=== PATIENT | female | born 2000 | race Caucasian/White ===

== ENCOUNTER → 2020-01-09 | Outpatient (CLI) | payer SELFPAY ==
--- NOTE | 2020-01-09 12:20 | RADIOLOGY REPORT (SQ) ---
EXAM DESCRIPTION: U/S [id number] TRNABD 1GES W/ODOP IMAGES COMPLETED DATE/TIME: 01/09/2020 10:28 am REASON FOR STUDY: Z34.01 ENCNTR FOR SUPRVSN OF NORMAL FIRST PREG, FIRST TRIMESTER Z34.01 ENCNTR FOR SUPRVSN OF NORMAL FIRST PREG, FIRST TRIMES COMPARISON: None. TECHNIQUE: Transabdominal static and realtime grayscale images acquired of the pelvis. Additional se lected spectral and color Doppler images recorded. All images stored on PACs. bHCG: Not available. CLINICAL DATES: LMP 11/05/2019 9 weeks 2 days LIMITATIONS: None. FINDINGS: FETUS: Single Living intrauterine . ULTRASOUND EGA: 9 weeks 6 days ULTRASOUND CORAL: 08/07/2020 EFW: Not applicable less than 20 weeks. CRL: 3 cm FHR: 168 beats per minute. SURVEY: No visualized anomalies. AMNIOTIC FLUID: Adequate amount. PLACENTA: Not yet developed due to early gestation. SUBCHORIONIC BLEED: No SIZE OF BLEED: Not applicable. UTERUS: No masses. No anomalies. CERVICAL LENGTH: 2.5 cm. Closed. RIGHT ADNEXA: Normal ovary with normal vascular flow. 2.9 x 2.3 x 2.5 cm. No adnexal free fluid. No adnexal masses. LEFT ADNEXA: Left ovary is not seen. No adnexal free fluid. No adnexal masses. FREE FLUID: None. OTHER: No other significant finding. IMPRESSION: LIVING INTRAUTERINE . EGA 9 weeks 6 days. Trimester of : First trimester - 0 to 13 weeks. TECHNICAL DOCUMENTATION: JOB ID: [id number] All Rights Reserved rev Reading location - IP/workstation name: [email or web address]
== END ==
LOC: RAD 09:58
PROVIDERS: ATTEND Nurse Practitioner Family
DX: Z34.01 Encounter for supervision of normal first pregnancy, first trimester (principal)
CPT/HCPCS: 76801

== ENCOUNTER 2020-07-23 11:38 | Outpatient (CLI) | payer MEDICAID ==
[2020-07-23 12:28] LABS: ABSOLUTE MONOCYTES (AUTO) 0.9 10^3/uL (0.1-1.4); ABSOLUTE NEUT (AUTO) 9.2 10^3/uL (1.7-8.2); BASOPHILS % (AUTO) 0.3 % (0-2); EOSINOPHILS % (AUTO) 0.1 % (0-6); HEMATOCRIT 32.5 % (36.0-47.0); HEMOGLOBIN 10.8 g/dL (12.0-15.5); LYMPHOCYTES % (AUTO) 16.6 % (13-45); MEAN CORPUSCULAR HEMOGLOBIN 25.6 pg (27.0-33.4); MEAN CORPUSCULAR HGB CONC 33.4 g/dL (32.0-36.0); MEAN CORPUSCULAR VOLUME 77 fl (80-97); MONOCYTES % (AUTO) 7.6 % (3-13); PLATELET COUNT 201 10^3/uL (150-450); RED BLOOD COUNT 4.24 10^6/uL (3.72-5.28); RED CELL DISTRIBUTION WIDTH 14.3 % (11.5-14.0); SEGMENTED NEUTROPHILS % (AUTO) 75.4 % (42-78); TOTAL CELLS COUNTED % (AUTO) 100 %; WHITE BLOOD COUNT 12.2 10^3/uL (4.0-10.5)
[2020-07-23 12:28] LABS: APPEARANCE,URINE SLIGHTLY-CLOUDY; BILIRUBIN,URINE NEGATIVE (NEGATIVE); COLOR,URINE YELLOW; GLUCOSE, URINE NEGATIVE (NEGATIVE); KETONES,URINE NEGATIVE (NEGATIVE); LEUKOCYTE ESTERASE,URINE TRACE (NEGATIVE); NITRITE,URINE NEGATIVE (NEGATIVE); PROTEIN,URINE 30 mg/dL (NEGATIVE); URINE SPECIFIC GRAVITY 1.023; UROBILINOGEN,URINE NEGATIVE mg/dL (<2.0)
[2020-07-23] MEDS ORDERED: ACETAMINOPHEN 325 MG TABLET PO ONE (12:40)
[2020-07-23] MEDS ORDERED: ACETAMINOPHEN 325 MG TABLET ONE (12:41)
[2020-07-23 12:47] LABS: ALBUMIN 3.4 g/dL (3.5-5.0); ALKALINE PHOSPHATASE 175 U/L (38-126); ANION GAP 8 (5-19); ASPARTATE AMINO TRANSFERASE 32 U/L (14-36); BILIRUBIN,DIRECT 0.1 mg/dL (0.0-0.4); BILIRUBIN,TOTAL 0.3 mg/dL (0.2-1.3); BLOOD UREA NITROGEN 11 mg/dL (7-20); CALCIUM 9.3 mg/dL (8.4-10.2); CARBON DIOXIDE 21 mmol/L (22-30); CHLORIDE 106 mmol/L (98-107); GLUCOSE 80 mg/dL (75-110); TOTAL PROTEIN 6.5 g/dL (6.3-8.2); URIC ACID 5.2 mg/dL (2.5-6.2)
[2020-07-23 12:49] LABS: UR PRO/CREAT RATIO RESULT 0.1 mg/mg (0.0-0.2); URINE CREATININE 197.9 mg/dL (16-327); URINE PROTEIN 23.5 mg/dL (<12)
[2020-07-23 13:01] LABS: URINE AMPHETAMINES SCREEN NEGATIVE; URINE BARBITURATES SCREEN NEGATIVE; URINE BENZODIAZEPINES SCREEN NEGATIVE; URINE COCAINE SCREEN NEGATIVE; URINE MARIJUANA (THC) SCREEN NEGATIVE; URINE METHADONE SCREEN NEGATIVE; URINE PHENCYCLIDINE SCREEN NEGATIVE
--- NOTE | 2020-07-23 13:23 | Non Stress Test Report ---
Non Stress Test Datetime Report Generated by CPN: 07/23/2020 13:23 DEMOGRAPHIC EGA NST: 37.2 INDICATION Indication for Study (NST) Other: IUP at 37.2 VITAL SIGNS Temperature - NST: 97.3 Pulse - NST: 79 RESP - NST: 18 NBPSYS NST: 143 NBPDIA NST: 96 MONITORING Monitor Explained: Monitor Explained; Test Explained; Patient Verbalized Understanding Time on Monitor: 07/23/2020 11:51 Time off Monitor: 07/23/2020 12:40 NST Duration: 49 NST INTERVENTIONS NST Interventions: PO Hydration Physician Notified NST: A. Rouse, CNM BABY A: [id number] BABY A Movement : Present Contraction Frequency : x1 FHR Baseline : 140 Accelerations : 15X15 Decelerations : None Variability : Moderate 6-25bpm NST Review: Meets Criteria for Reactive NST NST Review and Verified By : Nathaniel Rivera RN NST Results: Reactive NST REPORT Report Trigger: Send Report
== END 2020-07-23 13:24 | disposition home or self-care (01) ==
LOC: LC 11:38
PROVIDERS: ATTEND Obstetrics & Gynecology
DX: O16.3 Unspecified maternal hypertension, third trimester (principal); Z3A.37 37 weeks gestation of pregnancy
CPT/HCPCS: 59025; 36415; 83615; 84156; 84550; 82570; 85025; 81005; 80053; 80307; J3490; 87086

== ENCOUNTER 2020-08-09 10:44 | Inpatient (IN) | payer MEDICAID ==
[2020-08-09 11:27] LABS: ABSOLUTE LYMPHOCYTES (AUTO) 1.9 10^3/uL (0.5-4.7); ABSOLUTE MONOCYTES (AUTO) 0.7 10^3/uL (0.1-1.4); ABSOLUTE NEUT (AUTO) 9.8 10^3/uL (1.7-8.2); BASOPHILS % (AUTO) 0.3 % (0-2); EOSINOPHILS % (AUTO) 0.2 % (0-6); HEMATOCRIT 34.8 % (36.0-47.0); HEMOGLOBIN 11.1 g/dL (12.0-15.5); LYMPHOCYTES % (AUTO) 15.2 % (13-45); MEAN CORPUSCULAR HEMOGLOBIN 23.6 pg (27.0-33.4); MEAN CORPUSCULAR HGB CONC 31.9 g/dL (32.0-36.0); MEAN CORPUSCULAR VOLUME 74 fl (80-97); PLATELET COUNT 221 10^3/uL (150-450); RED CELL DISTRIBUTION WIDTH 14.9 % (11.5-14.0); SEGMENTED NEUTROPHILS % (AUTO) 78.3 % (42-78); TOTAL CELLS COUNTED % (AUTO) 100 %; WHITE BLOOD COUNT 12.5 10^3/uL (4.0-10.5)
[2020-08-09 11:30] LABS: APPEARANCE,URINE CLOUDY; BILIRUBIN,URINE NEGATIVE (NEGATIVE); COLOR,URINE YELLOW; GLUCOSE, URINE NEGATIVE (NEGATIVE); KETONES,URINE NEGATIVE (NEGATIVE); LEUKOCYTE ESTERASE,URINE SMALL (NEGATIVE); NITRITE,URINE NEGATIVE (NEGATIVE); PROTEIN,URINE 100 mg/dL (NEGATIVE); URINE SPECIFIC GRAVITY 1.023; UROBILINOGEN,URINE NEGATIVE mg/dL (<2.0)
[2020-08-09 11:49] LABS: ALBUMIN 3.4 g/dL (3.5-5.0); ALKALINE PHOSPHATASE 195 U/L (38-126); ANION GAP 8 (5-19); ASPARTATE AMINO TRANSFERASE 25 U/L (14-36); BILIRUBIN,DIRECT 0.2 mg/dL (0.0-0.4); BILIRUBIN,TOTAL 0.4 mg/dL (0.2-1.3); BLOOD UREA NITROGEN 9 mg/dL (7-20); CALCIUM 8.8 mg/dL (8.4-10.2); CARBON DIOXIDE 20 mmol/L (22-30); CHLORIDE 105 mmol/L (98-107); GLUCOSE 82 mg/dL (75-110); POTASSIUM 4.1 mmol/L (3.6-5.0); TOTAL PROTEIN 6.4 g/dL (6.3-8.2); URIC ACID 4.7 mg/dL (2.5-6.2)
[2020-08-09 11:55] LABS: UR PRO/CREAT RATIO RESULT 0.1 mg/mg (0.0-0.2); URINE CREATININE 260.3 mg/dL (16-327); URINE PROTEIN 34.3 mg/dL (<12)
[2020-08-09 12:02] LABS: URINE AMPHETAMINES SCREEN NEGATIVE; URINE BARBITURATES SCREEN NEGATIVE; URINE BENZODIAZEPINES SCREEN NEGATIVE; URINE COCAINE SCREEN NEGATIVE; URINE MARIJUANA (THC) SCREEN NEGATIVE; URINE METHADONE SCREEN NEGATIVE; URINE PHENCYCLIDINE SCREEN NEGATIVE
[2020-08-09] MEDS ORDERED: RINGERS SOLUTION,LACTATED 1,000 ML IV PRN (12:21)
[2020-08-09] MEDS ORDERED: RINGERS SOLUTION,LACTATED 1,000 ML IV ONE (12:21)
[2020-08-09] MEDS ORDERED: PENICILLIN G POTASSIUM 5,000,000 UNIT in DEXTROSE 5%-WATER 100 ML IV ONE (12:21)
[2020-08-09] MEDS ORDERED: DINOPROSTONE 10 MG VAGINAL INSERT.SR PV PRN (14:36)
[2020-08-09] MEDS ORDERED: DINOPROSTONE 10 MG VAGINAL INSERT.SR ONE (14:40)
--- NOTE | 2020-08-09 15:31 | Admission Physical ---
Datetime Report Generated by CPN: 08/09/2020 15:31 CURRENT ADMISSION Chief Complaint: Sent from OB Office for Evaluation and Treatment - Please Specify Indication for Induction: Gestational HTN Admit Impression : Term, Intrauterine Admit Plan: Admit to Unit; Initiate Labor Induction Protocol ALLERGIES Medication Allergies: No Medication Allergies: pesticide (08/09/2020) Latex: No Latex Allergies Food Allergies: raw apples Environmental Allergies: pesticides OBSTETRICAL HISTORY EDC: 08/11/2020 00:00 : 1 Para: 0 Term: 0 : 0 SAB: 0 IAB: 0 Ectopic: 0 Livin Cesareans: 0 VBACs: 0 Multiple Births: 0 Gestational Diabetes: No Rh Sensitization: No Incompetent Cervix: No CELINA: No Infertility: No ART Treatment: No Uterine Anomaly: No IUGR: No Hx Previous C/S: No Macrosomia: No Hx Loss/Stillborn: No PIH: No Hx : No Placenta Previa/Abruption: No Depression/PP Depression: No PTL/PROM: No Post Hemorrhage: No Obstetrical History Comments: G1-Current SEE RECORDS Alcohol: No Marijuana : No Cocaine: No Other Illicit Drugs: No Cigarettes: Never Smoker. [id number] MEDICAL HISTORY Diabetes: No Blood Transfusion: No Pulmonary Disease (Asthma, TB): No Breast Disease: No Hypertension: No Export Specialist Surgery: No Heart Disease: No Hosp/Surgery: No Autoimmune Disorder: No Anesthetic Complications: No Kidney Disease: No Abnormal Pap Smear: No Neuro/Epilepsy: No Psychiatric Disorders: No Other Medical Diseases: No Hepatitis/Liver Disease: No Significant Family History: No Varicosities/Phlebitis: No Trauma/Violence : No Thyroid Dysfunction: No Medical History Comments: Low iron INFECTIOUS HISTORY Gonorrhea: No Genital Herpes: No Chlamydia: No Tuberculosis: No Syphilis: No Hepatitis: No HIV/AIDS Exposure: No Rash or Viral Illness: No HPV: No PHYSICAL EXAM General: Normal HEENT: Normal Neurologic: Normal Thyroid: Deferred Heart: Normal Lungs: Normal Breast: Deferred Back: Normal Abdomen: Normal Genitourinary Exam: Normal Extremities: Normal DTRs: Normal Pelvic Type: Adequate Vital Signs: Reviewed Details Vital Signs: mild range elevated BPs VAGINAL EXAM Dilatation: 2 Effacement: 50 Station: -2 Contraction Comments: rare MEMBRANES Pooling: Negative Membranes: Intact FETUS A EGA: 39.5 Monitoring: External US FHR- Baseline: 135 Variability: Moderate 6-25bpm Accelerations: 15X15 Decelerations: None Estimated Weight (gm): 4000 Presentation: Vertex Admit Comment: with GHTN sent from office for IOL. cervidil placed. GBS pos. P:cervidil for cervical ripening, IOL-start penicillin with pitocin, anticipate PLANS FOR LABOR AND DELIVERY Labor and Delivery: None Pain Management: Natural Feeding Preference: Breast Benefit of Breast Feed Discussed: Yes Circumcision: Yes INFORMED CONSENT Assignment: Chaz Ramirez MD Signature: with User ID: [email or web address] : with User ID: [email or web address]
[2020-08-09] MEDS ORDERED: OXYTOCIN 10 UNIT/ML VIAL ONE (19:55)
[2020-08-09] MEDS ORDERED: LIDOCAINE 1% INJ-PF (10 MG/ML) 30 ML SDV ONE (19:55)
[2020-08-09] MEDS ORDERED: OXYTOCIN/0.9 % SODIUM CHLORIDE 30 UNIT/500 ML RTUINJ ONE (19:55)
[2020-08-09] MEDS ORDERED: MISOPROSTOL 0.2 MG TABLET ONE (19:55)
--- NOTE | 2020-08-09 20:14 | Warning Signs in Babies ---
VOD Warning Signs Datetime Report Generated by [facility]: 08/09/2020 20:13 VOD#608 -Warning Signs in Babies: Viewed with Parent(s)/Family (08/09/2020 20:13:Carlos Carter RN)
[2020-08-09] MEDS ORDERED: ZOLPIDEM TARTRATE 5 MG TABLET ONE (22:33)
[2020-08-09] MEDS ORDERED: ZOLPIDEM TARTRATE 5 MG TABLET PO ONE (22:49)
[2020-08-10] MEDS ORDERED: NALBUPHINE HCL INJ 10 MG/1 ML AMPULE ONE (00:10)
[2020-08-10] MEDS ORDERED: PROMETHAZINE HCL INJ 25 MG/1 ML VIAL ONE (00:10)
[2020-08-10] MEDS ORDERED: PROMETHAZINE HCL INJ 25 MG/1 ML VIAL IV ONE (00:40)
[2020-08-10] MEDS ORDERED: NALBUPHINE HCL INJ 10 MG/1 ML AMPULE INJ ONE (00:59)
[2020-08-10] MEDS ORDERED: OXYTOCIN/0.9 % SODIUM CHLORIDE 30 UNIT/500 ML RTUINJ IV PRN ×2 (03:19→07:38)
[2020-08-10] MEDS ORDERED: PENICILLIN G-K 5 MILLION UNIT VIAL ONE (03:54)
[2020-08-10] MEDS ORDERED: FENTANYL/BUPIVACAINE/NS/PF 0 MCG/0 ML RTUINJ EPI ONE (04:34)
[2020-08-10] MEDS ORDERED: EPHEDRINE SULFATE INJ 50 MG/1 ML AMPULE ONE (04:34)
[2020-08-10] MEDS ORDERED: ROPIVACAINE HCL 0.2% INJ/PF (2 MG/ML) 20 ML SDV ONE (04:34)
[2020-08-10] MEDS ORDERED: ACETAMINOPHEN 650 MG SUPP.RECT PR PRN (07:38)
[2020-08-10] MEDS ORDERED: PSEUDOEPHEDRINE HCL 30 MG TABLET PO PRN (07:38)
[2020-08-10] MEDS ORDERED: DIBUCAINE 1% OINTMENT 28 GM TP PRN (07:38)
[2020-08-10] MEDS ORDERED: DIPH/PERTUSS(ACELL)/TETANUS VAC/PF 0.5 ML SYR (>=10YO) IM PRN (07:38)
[2020-08-10] MEDS ORDERED: DIPHENHYDRAMINE HCL 25 MG CAPSULE PO PRN (07:38)
[2020-08-10] MEDS ORDERED: MEASLES,MUMPS&RUBELLA VACC/PF 0.5 ML VIAL SUBCUT PRN (07:38)
[2020-08-10] MEDS ORDERED: MAG HYDROX/AL HYDROX/SIMETH SUSP 30 ML UDCUP PO PRN (07:38)
[2020-08-10] MEDS ORDERED: GLYCERIN/WITCH HAZEL LEAF 1 EACH MED..WIPE TP PRN (07:38)
[2020-08-10] MEDS ORDERED: VARICELLA VACC/PF (1350 UNIT/0.5 ML) 0.5 ML VIAL SUBCUT PRN (07:38)
[2020-08-10] MEDS ORDERED: ACETAMINOPHEN WITH CODEINE #3 TABLET PO PRN (07:38)
[2020-08-10] MEDS ORDERED: MAGNESIUM HYDROXIDE SUSP 30 ML UDCUP PO PRN (07:38)
[2020-08-10] MEDS ORDERED: ZOLPIDEM TARTRATE 5 MG TABLET PO PRN (07:38)
[2020-08-10] MEDS ORDERED: ACETAMINOPHEN 325 MG TABLET PO PRN (07:38)
[2020-08-10] MEDS ORDERED: BENZOCAINE/MENTHOL AEROSOL SPRAY 56 ML TOP PRN (07:38)
[2020-08-10] MEDS ORDERED: FAMOTIDINE 20 MG TABLET PO PRN (07:38)
[2020-08-10] MEDS ORDERED: MAG HYDROX/AL HYDROX/SIMETH SUSP 30 ML UDCUP ONE (08:47)
[2020-08-10] MEDS ORDERED: IBUPROFEN 800 MG TABLET ONE (09:15)
[2020-08-10] MEDS ORDERED: SENNOSIDES/DOCUSATE 8.6-50 MG 1 EACH TABLET PO SCH (10:00)
[2020-08-10] MEDS: PENICILLIN G POTASSIUM 2,500,000 UNIT in DEXTROSE 5%-WATER 50 ML IV SCH (12:43)
[2020-08-10] MEDS: PRENATAL VITAMIN W DHA CAPSULE PO SCH (13:56)
[2020-08-10] MEDS: FERROUS SULFATE 325 MG TABLET PO SCH ×2 (13:56→17:15)
[2020-08-10] MEDS: DOCUSATE SODIUM 100 MG CAPSULE PO SCH ×2 (13:56→17:15)
[2020-08-10] MEDS ORDERED: IBUPROFEN 800 MG TABLET PO SCH (14:00)
[2020-08-10] MEDS: IBUPROFEN 800 MG TABLET PO SCH (17:15)
[2020-08-10] MEDS: SENNOSIDES/DOCUSATE 8.6-50 MG 1 EACH TABLET PO SCH (17:24)
[2020-08-11] MEDS: IBUPROFEN 800 MG TABLET PO SCH ×3 (01:41→17:50)
[2020-08-11 06:31] LABS: HEMATOCRIT 23.1 % (36.0-47.0); MEAN CORPUSCULAR HEMOGLOBIN 24.3 pg (27.0-33.4); MEAN CORPUSCULAR HGB CONC 32.8 g/dL (32.0-36.0); MEAN CORPUSCULAR VOLUME 74 fl (80-97); PLATELET COUNT 168 10^3/uL (150-450); RED BLOOD COUNT 3.11 10^6/uL (3.72-5.28); RED CELL DISTRIBUTION WIDTH 15.5 % (11.5-14.0); WHITE BLOOD COUNT 17.8 10^3/uL (4.0-10.5)
[2020-08-11 06:33] LABS: HEMOGLOBIN 7.6 g/dL (12.0-15.5)
[2020-08-11] MEDS: DOCUSATE SODIUM 100 MG CAPSULE PO SCH ×2 (10:01→17:49)
[2020-08-11] MEDS: SENNOSIDES/DOCUSATE 8.6-50 MG 1 EACH TABLET PO SCH (10:01)
[2020-08-11] MEDS: FERROUS SULFATE 325 MG TABLET PO SCH ×2 (10:01→17:49)
--- NOTE | 2020-08-11 10:21 | PDOC PROGRESS REPORT ---
Subjective-OB Progress Note for:: 08/11/20 Subjective: reports bleeding slowing, pain controlled with current meds. denies need Physical Exam (OB) Vital Signs: Temp Pulse Resp BP Pulse Ox 98.3 F 93 18 120/75 100 08/11/20 07:14 08/11/20 07:14 08/11/20 07:14 08/11/20 07:14 08/11/20 07:14 Intake & Output 08/10/20 08/11/20 08/12/20 06:59 06:59 06:59 Output Total 100 Balance -100 Weight 119.8 kg - Maternal Morbidity 59. Maternal Morbidity (serious complications experinced by the mother associated with labor and delivery: None of the above - Abdomen Description: Soft, Round Hernia Present: No Fundal Description: Firm, Midline Fundal Height: u/u - u/2 - Abdominal Distension: No distension Tenderness: Nontender - Extremities Lower extremities: Marimar's sign - neg Calf: Normal, Nontender Objective-Diagnostic Laboratory: 08/11/20 05:54 08/09/20 11:07 08/11/20 05:54 WBC 17.8 H RBC 3.11 L Hgb 7.6 L D Hct 23.1 L MCV 74 L MCH 24.3 L MCHC 32.8 RDW 15.5 H Plt Count 168 Assessment and Plan(PN) - Assessment and Plan (1) Normal vaginal delivery Is this a current diagnosis for this admission?: Yes (2) Encounter for induction of labor Is this a current diagnosis for this admission?: Yes (3) Gestational hypertension Is this a current diagnosis for this admission?: Yes - Time Spent with Patient Time with patient: Less than 15 minutes Medications reviewed and adjusted accordingly: Yes - Disposition Anticipated Discharge Disposition: Home, Self Care Anticipated Discharge Timeframe: within 24 hours
[2020-08-11] MEDS: PRENATAL VITAMIN W DHA CAPSULE PO SCH (10:52)
[2020-08-12] MEDS: IBUPROFEN 800 MG TABLET PO SCH ×2 (03:29→09:14)
[2020-08-12 08:05] VITALS: BP 125/80
[2020-08-12] MEDS ORDERED: PRENATAL VITAMIN W DHA CAPSULE PO ONE (09:12)
[2020-08-12] MEDS: SENNOSIDES/DOCUSATE 8.6-50 MG 1 EACH TABLET PO SCH (09:14)
[2020-08-12] MEDS: PRENATAL VITAMIN W DHA CAPSULE PO SCH (09:14)
[2020-08-12] MEDS: FERROUS SULFATE 325 MG TABLET PO SCH (09:14)
[2020-08-12] MEDS: DOCUSATE SODIUM 100 MG CAPSULE PO SCH (09:14)
--- NOTE | 2020-08-12 09:41 | PDOC DISCHARGE SUMMARY ---
Impression - Admit/DC Date/PCP Admission Date/Primary Care Provider: 08/09/20 11:53 ANDER GONZALEZ MD Discharge Date: 08/12/20 - PP day #2, doing well, UOB, voiding, no complaints, denies dizziness w/ ambulation. Declines IV restart with IV iron infusion today. O+., Rubella Immune. Hx GHTN and PPH - Discharge Diagnosis (1) PPH ( hemorrhage) Is this a current diagnosis for this admission?: Yes (2) Acute blood loss anemia Is this a current diagnosis for this admission?: Yes (3) Encounter for induction of labor Is this a current diagnosis for this admission?: Yes (4) Gestational hypertension Is this a current diagnosis for this admission?: Yes (5) Normal vaginal delivery Is this a current diagnosis for this admission?: Yes - Additional Information Resuscitation Status: Full Code Discharge Diet: As Tolerated, Regular Discharge Activity: Activity As Tolerated, No Lifting Over 10 Pounds, Pelvic Rest Referrals: ANDER GONZALEZ MD [Primary Care Provider] - Prescriptions: Ibuprofen [Motrin 800 mg Tablet] 800 mg PO Q8A #60 tablet Home Medications: Ascorbic Acid [Vitamin C 500 mg Tablet] 500 mg PO DAILY 07/23/20 Ferrous Sulfate [Ferosul] 325 mg PO DAILY 07/23/20 Pnv No.95/Ferrous Fum/Folic AC [ Caplet] 1 each PO DAILY 07/23/20 Ibuprofen [Motrin 800 mg Tablet] 800 mg PO Q8A #60 tablet 08/12/20 HPI Reason(s) for Admission: Induction of Labor Admission Note: Hx GHTN Procedures: Management of Obstetric Complications Complication(s): Laceration-Vaginal, Hemorrhage-Uterine Atony Laceration-Degree: 1st Hospital Course 59. Maternal Morbidity (serious complications experinced by the mother associated with labor and delivery: None of the above Results Laboratory Results: WBC 17.8 10^3/uL (4.0-10.5) H 08/11/20 05:54 RBC 3.11 10^6/uL (3.72-5.28) L 08/11/20 05:54 Hgb 7.6 g/dL (12.0-15.5) L D 08/11/20 05:54 Hct 23.1 % (36.0-47.0) L 08/11/20 05:54 MCV 74 fl (80-97) L 08/11/20 05:54 MCH 24.3 pg (27.0-33.4) L 08/11/20 05:54 MCHC 32.8 g/dL (32.0-36.0) 08/11/20 05:54 RDW 15.5 % (11.5-14.0) H 08/11/20 05:54 Plt Count 168 10^3/uL (150-450) 08/11/20 05:54 Lymph % (Auto) 15.2 % (13-45) 08/09/20 11:07 Barron % (Auto) 6.0 % (3-13) 08/09/20 11:07 Eos % (Auto) 0.2 % (0-6) 08/09/20 11:07 Baso % (Auto) 0.3 % (0-2) 08/09/20 11:07 Absolute Neuts (auto) 9.8 10^3/uL (1.7-8.2) H 08/09/20 11:07 Absolute Lymphs (auto) 1.9 10^3/uL (0.5-4.7) 08/09/20 11:07 Absolute Monos (auto) 0.7 10^3/uL (0.1-1.4) 08/09/20 11:07 Absolute Eos (auto) 0.0 10^3/uL (0.0-0.6) 08/09/20 11:07 Absolute Basos (auto) 0.0 10^3/uL (0.0-0.2) 08/09/20 11:07 Seg Neutrophils % 78.3 % (42-78) H 08/09/20 11:07 Sodium 133.2 mmol/L (137-145) L 08/09/20 11:07 Potassium 4.1 mmol/L (3.6-5.0) 08/09/20 11:07 Chloride 105 mmol/L (98-107) 08/09/20 11:07 Carbon Dioxide 20 mmol/L (22-30) L 08/09/20 11:07 Anion Gap 8 (5-19) 08/09/20 11:07 BUN 9 mg/dL (7-20) 08/09/20 11:07 Creatinine 0.66 mg/dL (0.52-1.25) 08/09/20 11:07 Est GFR ( Amer) > 60 (>60) 08/09/20 11:07 Est GFR (MDRD) Non-Af > 60 (>60) 08/09/20 11:07 Glucose 82 mg/dL (75-110) 08/09/20 11:07 Uric Acid 4.7 mg/dL (2.5-6.2) 08/09/20 11:07 Calcium 8.8 mg/dL (8.4-10.2) 08/09/20 11:07 Total Bilirubin 0.4 mg/dL (0.2-1.3) 08/09/20 11:07 Direct Bilirubin 0.2 mg/dL (0.0-0.4) 08/09/20 11:07 Neonat Total Bilirubin Not Reportable 08/09/20 11:07 Neonat Direct Bilirubin Not Reportable 08/09/20 11:07 Neonat Indirect Bili Not Reportable 08/09/20 11:07 AST 25 U/L (14-36) 08/09/20 11:07 ALT 14 U/L (<35) 08/09/20 11:07 Alkaline Phosphatase 195 U/L (38-126) H 08/09/20 11:07 Lactate Dehydrogenase 185 U/L (120-246) 08/09/20 11:07 Total Protein 6.4 g/dL (6.3-8.2) 08/09/20 11:07 Albumin 3.4 g/dL (3.5-5.0) L 08/09/20 11:07 Urine Color YELLOW 08/09/20 10:52 Urine Appearance CLOUDY 08/09/20 10:52 Urine pH 6.0 (5.0-9.0) 08/09/20 10:52 Ur Specific [place] 1.023 08/09/20 10:52 Urine Protein 100 mg/dL (NEGATIVE) H 08/09/20 10:52 Urine Glucose (UA) NEGATIVE mg/dL (NEGATIVE) 08/09/20 10:52 Urine Ketones NEGATIVE mg/dL (NEGATIVE) 08/09/20 10:52 Urine Blood NEGATIVE (NEGATIVE) 08/09/20 10:52 Urine Nitrite NEGATIVE (NEGATIVE) 08/09/20 10:52 Urine Bilirubin NEGATIVE (NEGATIVE) 08/09/20 10:52 Urine Urobilinogen NEGATIVE mg/dL (<2.0) 08/09/20 10:52 Ur Leukocyte Esterase SMALL (NEGATIVE) H 08/09/20 10:52 Urine Creatinine 260.3 mg/dL (16-327) 08/09/20 10:52 Protein/Creatinin Ratio 0.1 mg/mg (0.0-0.2) 08/09/20 10:52 Urine Total Protein 34.3 mg/dL (<12) H 08/09/20 10:52 Urine Ascorbic Acid NEGATIVE (NEGATIVE) 08/09/20 10:52 Urine Opiates Screen NEGATIVE 08/09/20 10:52 Urine Methadone Screen NEGATIVE 08/09/20 10:52 Ur Barbiturates Screen NEGATIVE 08/09/20 10:52 Ur Phencyclidine Scrn NEGATIVE 08/09/20 10:52 Ur Amphetamines Screen NEGATIVE 08/09/20 10:52 U Benzodiazepines Scrn NEGATIVE 08/09/20 10:52 Urine Cocaine Screen NEGATIVE 08/09/20 10:52 U Marijuana (THC) Screen NEGATIVE 08/09/20 10:52 Blood Type O POSITIVE 08/09/20 11:09 Antibody Screen NEGATIVE 08/09/20 11:09 Plan Health Concerns: iron rich foods discussed, BP precautions reviewed Plan of Treatment: d/c home, f/ up with [facility] in one week for BP check Time Spent: Less than 30 Minutes
--- NOTE | 2020-08-13 14:28 | Delivery Summary ---
Del Sum A-C Datetime Report Generated by CPN: 08/13/2020 14:28 DELIVERY PERSONNEL DELIVERY PERSONNEL: [id number] Delivery Doctor:: Chaz Ramirez, MD Labor and Delivery Nurse:: Tawanna Oconnor RN Branch Administrator/SLUICE TENDER: Meghana Hill, CHUCK TENDER MATERNAL INFORMATION Delivery Anesthesia: None Medications After Delivery: Pitocin 30 Units in 500ml NS/D5W Delivery QBL: 400 Maternal Complications: None LABOR SUMMARY EDC: 08/11/2020 00:00 No. Babies in Womb: 1 Attempted: No LABOR INFORMATION Reason for Induction: Gestational Hypertension Onset of Labor: 08/10/2020 04:38 Complete Dilatation: 08/10/2020 06:41 Cervical Ripening Agents: Cervidil Oxytocin: Induction Group B Beta Strep: positive Antibiotics # of Doses: 1 Antibiotics Time of Last Dose: 08/10/2020 04:04 Name of Antibiotic Given: pcn MEMBRANES Membranes Rupture Method: Spontaneous Rupture of Membranes: 08/10/2020 04:38 Length of Rupture (hr): 2.67 Amniotic Fluid Color: Clear Amniotic Fluid Amount: Small Amniotic Fluid Odor: None STAGES OF LABOR Stage 1 hr: 2 Stage 1 min: 3 Stage 2 hr: 0 Stage 2 min: 37 Stage 3 hr: 0 Stage 3 min: 8 Total Time in Labor hr: 2 Total Time in Labor min: 48 VAGINAL DELIVERY Episiotomy: None Laceration #1: Vaginal Laceration Extension #1: N/A Laceration Repair: Yes Sponge Count Correct: Yes Sharps Count Correct: Yes CSECTION DELIVERY Primary Indication: N/A Secondary Indication: N/A CSection Incidence: N/A Labor: N/A Elective: N/A CSection Incision: N/A BABY A INFORMATION Delivery Date/Time: 08/10/2020 07:18 Method of Delivery: Vaginal Nurse Controlled Delivery: No Born in Route : No : N/A Forceps: N/A Vacuum Extraction: N/A Shoulder Dystocia : No PRESENTATION/POSITION BABY A Presentation: Cephalic Cephalic Presentation: Vertex Breech Presentation: N/A PLACENTA INFORMATION BABY A Placenta Delivery Time : 08/10/2020 07:26 Placenta Method of Delivery: Spontaneous Placenta Status: Delivered SCORES BABY A Heart Rate 1 min: >100 bpm Resp Effort 1 min: Good Cry Reflex Irritability 1 min: Cough or Sneeze or Pulls Away Muscle Tone 1 min: Active Motion Color 1 min: Body [place], Extremities Blue Resuscitation Effort 1 min: Tactile Stimulation SCORE 1 MIN: 9 Heart Rate 5 min: >100 bpm Resp Effort 5 min: Good Cry Reflex Irritability 5 min: Cough or Sneeze or Pulls Away Muscle Tone 5 min: Active Motion Color 5 min: Body [place], Extremities Blue Resuscitation Effort 5 min: N/A SCORE 5 MIN: 9 INFANT INFORMATION BABY A Gestational Age at Delivery: 39.6 Gestational Status: Full Term- 39- 40.6 Weeks Outcome : Liveborn Infant Condition : Stable Infant Sex: Male IDENTIFICATION BABY A Verification Date/Time: 08/10/2020 08:20 ID Band Number: [id number] Mother's Name Verified: Yes RN Verifying Infant: Nathaniel Oconnor RN, C. Michelle RN WEIGHT/LENGTH BABY A Birthweight (gm): 4069 Infant Weight (lb): 9 Weight (oz): 0 Length (in): 22.00 Length (cm): 55.88 CORD INFORMATION BABY A No. Cord Vessels: 3 Nuchal Cord : N/A Cord Blood Taken: Yes-For Eval (Mom's Blood Type - or O+) Infant Suction: None ASSESSMENT BABY A Complications: None Physical Findings at Delivery: Within Normal Limits Infant Respirations: Appears Normal Business Planner/ALS Called : No Care By: Nathaniel Oconnor RN Transferred To: Remains with Mother SIGNATURES Signature: with User ID: [email or web address] : I was personally available for consultation and serving as supervising physician for the MLP.
== END 2020-08-12 11:01 | disposition home or self-care (01) | DRG 806 ==
LOC: LC 10:44 → LR 11:53 → 2S 08-10 09:45
PROVIDERS: ADMIT Obstetrics & Gynecology Gynecology; ATTEND Obstetrics & Gynecology Gynecology
PROC: 10E0XZZ Delivery of Products of Conception, External Approach (ICD-10-PCS; principal; 2020-08-09)
PROC: 0HQ9XZZ Repair Perineum Skin, External Approach (ICD-10-PCS; 2020-08-09)
PROC: 3E0P7VZ Introduction of Hormone into Female Reproductive, Via Natural or Artificial Opening (ICD-10-PCS; 2020-08-09)
PROC: 3E033VJ Introduction of Other Hormone into Peripheral Vein, Percutaneous Approach (ICD-10-PCS; 2020-08-09)
DX: O13.4 Gestational [pregnancy-induced] hypertension without significant proteinuria, complicating childbirth (principal); D62 Acute posthemorrhagic anemia; Z37.0 Single live birth; O70.0 First degree perineal laceration during delivery; O72.1 Other immediate postpartum hemorrhage; O99.824 Streptococcus B carrier state complicating childbirth; Z20.822 Contact with and (suspected) exposure to COVID-19; Z91.018 Allergy to other foods; Z91.048 Other nonmedicinal substance allergy status; Z3A.39 39 weeks gestation of pregnancy
CPT/HCPCS: 36415; 80053; 80307; 81005; 82570; 83615; 84156; 84550; 85025; 85027; 86592; 86850; 86900; 86901; 94760; J2300; J2540; J2550; J2590; J2795; J3010; J3490; J7060